=== PATIENT | female | born 1970 | race Caucasian/White ===

== ENCOUNTER → 2024-02-15 08:08 | Outpatient (REF) | payer BC, SELFPAY | LOC: RAD 08:08 | PROVIDERS: ATTENDING PHYSICIAN Nurse Practitioner Family | DX: Z15.89 Genetic susceptibility to other disease (principal); Z80.0 Family history of malignant neoplasm of digestive organs; R93.3 Abnormal findings on diagnostic imaging of other parts of digestive tract | CPT/HCPCS: 74177; Q9967 ==